=== PATIENT | male | born 1975 | race Caucasian/White ===

== ENCOUNTER 2018-06-06 17:20 | Inpatient (IN) | payer BC, OTHER ==
[2018-06-06 17:52] VITALS: BMI 29.5
--- NOTE | 2018-06-06 18:10 | HP ---
CIWA Score - CIWA Score Nausea/Vomitin Muscle Tremors: 2 Anxiety: 2 Agitation: 2 Paroxysmal Sweats: 1-Minimal Palms Moist Orientation: 0-Oriented Tacttile Disturbances: 1-Very Mild Itch/Numbness Auditory Disturbances: 1-Very Mild Visual Disturbances: 0-None Headache: 2-Mild CIWA-Ar Total Score: 13 Admission ROS BHS - HPI Chief Complaint: i need help to stop drinking alcohol Allergies/Adverse Reactions: Allergies Allergy/AdvReac Type Severity Reaction Status Date / Time No Known Allergies Allergy Verified 06/06/18 17:36 History of Present Illness: this 42years old male with alcohol dependence,seeking detox,withdrawal symptom, last detox in [facility] in 2013 blackout seen in [facility] this morning received librium 50 mgs,refer for detox anxiety on clonazepam asthma,bronchitis longest time of sobriety 6 months Exam Limitations: No Limitations - Ebola screening Have you traveled outside of the country in the last 21 days: No (N) Have you had contact with anyone from an Ebola affected area: No Have you been sick,other than usual withdrawal symptoms: No Do you have a fever: No - Review of Systems Constitutional: Malaise, Night Sweats, Changes in sleep, Weakness EENT: reports: Nose Congestion (asthma bronchtis) Respiratory: reports: Other (asthma bronchitis) Cardiac: reports: No Symptoms Reported GI: reports: Nausea, Abdominal cramping : reports: No Symptoms Reported Musculoskeletal: reports: Back Pain, Muscle Pain Integumentary: reports: Dryness Neuro: reports: Headache, Tremors Endocrine: reports: No Symptoms Reported Hematology: reports: No Symptoms Reported Psychiatric: reports: No Sypmtoms Reported, Judgement Intact, Mood/Affect Appropiate, Orientated x3, Agitated Patient History - Patient Medical History Hx Anemia: No Hx Asthma: Yes (bronchitis) Hx Chronic Obstructive Pulmonary Disease (COPD): No Hx Cancer: No Hx Cardiac Disorders: No Hx Congestive Heart Failure: No Hx Hypertension: No Hx Hypercholesterolemia: No Hx Pacemaker: No HX Cerebrovascular Accident: No Hx Seizures: No Hx Dementia: No Hx Diabetes: No Hx Gastrointestinal Disorders: No Hx Liver Disease: No Hx Genitourinary Disorders: No Hx Sexually Transmitted Disorders: No Hx Renal Disease (ESRD): No Hx Thyroid Disease: No Hx Human Immunodeficiency Virus (HIV): No (last 2008 negative) Hx Hepatitis C: No Hx Depression: Yes (anxiety) Hx Suicide Attempt: No Hx Bipolar Disorder: No Hx Schizophrenia: No Other Medical History: no suicidal,no homicidal - Patient Surgical History Hx Appendectomy: Yes ([facility] 2013) Other Surgical History: umbilical hernia in 2012 - PPD History Previous Implant?: Yes Documented Results: Positive w/o proof Implanted On Prior R Admission?: Yes PPD to be Administered?: Yes - Smoking Cessation Smoking history: Never smoked - Substance & Tx. History Hx Alcohol Use: Yes Hx Substance Use: No Substance Use Type: Alcohol Hx Substance Use Treatment: Yes ([facility] 2013) - Substances Abused Alcohol Route: Oral Frequency: Daily Amount used: liquor- 1 pints, beer- 1 six pack Age of first use: 13 Date of Last Use: 06/06/18 Family Disease History - Family Disease History Family Disease History: Other: Father (alcohol,), Mother (alcohol, ) Admission Physical Exam [facility] - Vital Signs Vital Signs: Vital Signs - 24 hr 06/06/18 17:36 Temperature 98.0 F Pulse Rate 94 H Respiratory 18 Rate Blood Pressure 145/84 - Physical General Appearance: Yes: Moderate Distress, Tremorous, Irritable, Sweating, Anxious HEENTM: Yes: Normal ENT Inspection, MARC, Pharynx Normal Respiratory: Yes: No Respiratory Distress, Wheezing Neck: Yes: Within Normal Limits Breast: Yes: Within Normal Limits Cardiology: Yes: Within Normal Limits, Regular Rhythm, Regular Rate, S1, S2 Abdominal: Yes: Within Normal Limits, Normal Bowel Sounds, Non Tender, Soft Genitourinary: Yes: Within Normal Limits Back: Yes: Muscle Spasm Musculoskeletal: Yes: Back pain, Muscle Pain Extremities: Yes: Tremors Integumentary: Yes: Dry Lymphatic: Yes: Within Normal Limits - Diagnostic (1) Alcohol dependence with uncomplicated withdrawal Current Visit: Yes Status: Acute (2) Syncope Current Visit: Yes Status: Acute (3) Asthmatic bronchitis Current Visit: Yes Status: Acute (4) Anxiety and depression Current Visit: Yes Status: Acute Cleared for Admission [facility] - Detox or Rehab [facility] Level of Care: Medically Managed Detox Regimen/Protocol: Librium [facility] Breath Alcohol Content Breath Alcohol Content: 0.069 Urine Drug Screen - Results Drug Screen Negative: Yes
[2018-06-06] MEDS ORDERED: guaiFENesin/D-METHORPHAN HB 10 ML UNIT-DOSE CUPS PO PRN (18:35)
[2018-06-06] MEDS ORDERED: MAGNESIUM HYDROX 2400MG/30ML ORAL SUSPENSION 30 ML CUP PO PRN (18:35)
[2018-06-06] MEDS ORDERED: IBUPROFEN 400 MG TABLET (FP) PO PRN (18:35)
[2018-06-06] MEDS ORDERED: P-EPHED 60MG/TRIPROLIDI 2.5MG TABLET PO PRN (18:35)
[2018-06-06] MEDS ORDERED: ACETAMINOPHEN 325 MG TABLET (FP) PO PRN (18:35)
[2018-06-06] MEDS ORDERED: LOPERAMIDE HCL 2 MG CAPSULE PO PRN (18:35)
[2018-06-06] MEDS ORDERED: MENTHOL/PHENOL 1 EACH UD MM PRN (18:35)
[2018-06-06] MEDS ORDERED: MAGNESIUM CITRATE 300 ML BOTTLE PO PRN (18:35)
[2018-06-06] MEDS ORDERED: ALBUTEROL SO4 8 GM HFA INHALER IH PRN (18:38)
[2018-06-06] MEDS: chlordiazePOXIDE HCL 25 MG CAPSULE PO PRN (19:30)
[2018-06-06] MEDS: MELATONIN 5 MG TABLETS PO PRN (22:44)
[2018-06-06] MEDS: THIAMINE HCL 100 MG TABLET (FP) PO SCH (22:44)
[2018-06-06] MEDS: chlordiazePOXIDE HCL 25 MG CAPSULE PO SCH (22:44)
[2018-06-06] MEDS: ROSUVASTATIN CA 5 MG TABLET (FP) PO SCH (22:49)
[2018-06-07] MEDS: chlordiazePOXIDE HCL 25 MG CAPSULE PO SCH ×4 (05:40→22:26)
--- NOTE | 2018-06-07 09:46 | CONSULT ---
[facility] Psychiatric Consult - Data Date of interview: 06/07/18 Admission source: Admitted as a transfer from 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 He had a prior in patient Detox treatment at [facility] in 2013 for ETOH abuse. He reports a history of black out spells no seizure disorder. Refer to addiction counselor muna for detailed history of ETOH abuse Medical History: GERD, diverticulitis, hypervcholesterolemia, ? Asthma. History of appendectomy in 2013 Psychiatric History: Patient has no prior psychiatric hospitalization, he experiences anxiety symptoms, self-medicated with benzo. He is medicated by his PCP with Trazodone for insomnia He is currentlky seing a private therapist and want to be hooked up with a psychiatrist to help alleviate his anxiety symptoms Physical/Sexual Abuse/Trauma History: Denied Mental Status Exam - Mental Status Exam Alert and Oriented to: Time, Place, Person Cognitive Function: Grossly Intact Patient Appearance: Well Groomed Mood: Anxious Affect: Appropriate Patient Behavior: Appropriate, Cooperative Speech Pattern: Clear Voice Loudness: Normal Thought Process: Intact Thought Disorder: Not Present Hallucinations: Denies Suicidal Ideation: Denies Homicidal Ideation: Denies Insight/Judgement: Poor Sleep: Poorly Appetite: Fair Muscle strength/Tone: Normal Gait/Station: Normal Psychiatric Findings - Problem List ([place] 1, 2,3) (1) Alcohol dependence with uncomplicated withdrawal Current Visit: Yes Status: Acute (2) Anxiety and depression Current Visit: Yes Status: Acute (3) Asthmatic bronchitis Current Visit: Yes Status: Acute - Initial Treatment Plan Initial Treatment Plan: Continue in patient Detox treatment. Psychoeducation. Atarax 25 mg po bid. Trazodone 50 mg po q hs
[2018-06-07] MEDS: PRENATAL VITAMINS W/ FOLIC ACID TABLET (FP) PO SCH (10:06)
[2018-06-07 10:36] LABS: HEMATOCRIT 44.8 % (35.4-49); HEMOGLOBIN 14.8 GM/dL (11.7-16.9); MCH 29.9 pg (25.7-33.7); MEAN CELL VOLUME 90.6 fl (80-96); MEAN PLT VOLUME 6.7 fl (7.5-11.1); PLATELET COUNT 175 K/MM3 (134-434); RBC 4.95 M/mm3 (4.00-5.60); WHITE BLOOD COUNT 4.4 K/mm3 (4.0-10.0)
[2018-06-07 10:44] LABS: ALBUMIN 3.6 g/dl (3.4-5.0); ALK PHOS 77 U/L (45-117); ANION GAP 12 MMOL/L (8-16); BILIRUBIN,TOTAL 0.7 mg/dL (0.2-1); BLOOD UREA NITROGEN 17 mg/dL (7-18); CALCIUM 8.1 mg/dL (8.5-10.1); CHLORIDE 105 mmol/L (98-107); CO2 26 mmol/L (21-32); CREATININE 0.8 mg/dL (0.55-1.3); GLUCOSE,RANDOM 92 mg/dL (74-106); POTASSIUM 4.1 mmol/L (3.5-5.1); SGOT/AST 50 U/L (15-37); SGPT/ALT 59 U/L (13-61); SODIUM 143 mmol/L (136-145); TOT PROT 6.6 g/dl (6.4-8.2)
[2018-06-07 10:45] LABS: URINE APPEARANCE CLEAR; URINE BILIRUBIN NEGATIVE (<2.0 mg/dL); URINE COLOR YELLOW; URINE GLUCOSE (UA) NEGATIVE (NEGATIVE); URINE KETONE NEGATIVE (NEGATIVE); URINE LEUK ESTERASE NEGATIVE (NEGATIVE); URINE NITRITE NEGATIVE (NEGATIVE); URINE PROTEIN 1+ (NEGATIVE); URINE UROBILINOGEN NEGATIVE mg/dL (0.2-1.0)
[2018-06-07 10:48] LABS: URINE MUCUS RARE
[2018-06-07] MEDS: chlordiazePOXIDE HCL 25 MG CAPSULE PO PRN (12:56)
--- NOTE | 2018-06-07 13:39 | PN ---
S CIWA - CIWA Score Nausea/Vomitin-Mild Nausea/No Vomiting Muscle Tremors: 3 Anxiety: 2 Agitation: 2 Paroxysmal Sweats: 1-Minimal Palms Moist Orientation: 1-Uncertain about Date Tacttile Disturbances: 1-Very Mild Itch/Numbness Auditory Disturbances: 1-Very Mild Visual Disturbances: 0-None Headache: 1-Very Mild CIWA-Ar Total Score: 13 BHS Progress Note (SOAP) Subjective: sweat tremor anxiety restlessness trouble sleep at night longest sobriety 6 month looking for a new sponsor the previous sponsor "disappeared" Objective: 06/07/18 13:37 Vital Signs Temperature 97.0 F L 06/07/18 09:53 Pulse Rate 89 06/07/18 09:53 Respiratory Rate 16 06/07/18 09:53 Blood Pressure 149/96 06/07/18 09:53 O2 Sat by Pulse Oximetry (%) Laboratory Last Values WBC 4.4 K/mm3 (4.0-10.0) 06/07/18 07:35 RBC 4.95 M/mm3 (4.00-5.60) 06/07/18 07:35 Hgb 14.8 GM/dL (11.7-16.9) 06/07/18 07:35 Hct 44.8 % (35.4-49) 06/07/18 07:35 MCV 90.6 fl (80-96) 06/07/18 07:35 MCH 29.9 pg (25.7-33.7) 06/07/18 07:35 MCHC 33.0 g/dl (32.0-35.9) 06/07/18 07:35 RDW 14.0 % (11.9-15.9) 06/07/18 07:35 Plt Count 175 K/MM3 (134-434) 06/07/18 07:35 MPV 6.7 fl (7.5-11.1) L 06/07/18 07:35 Sodium 143 mmol/L (136-145) 06/07/18 07:35 Potassium 4.1 mmol/L (3.5-5.1) 06/07/18 07:35 Chloride 105 mmol/L (98-107) 06/07/18 07:35 Carbon Dioxide 26 mmol/L (21-32) 06/07/18 07:35 Anion Gap 12 MMOL/L (8-16) 06/07/18 07:35 BUN 17 mg/dL (7-18) 06/07/18 07:35 Creatinine 0.8 mg/dL (0.55-1.3) 06/07/18 07:35 Creat Clearance w eGFR > 60 (>60) 06/07/18 07:35 Random Glucose 92 mg/dL (74-106) 06/07/18 07:35 Calcium 8.1 mg/dL (8.5-10.1) L 06/07/18 07:35 Total Bilirubin 0.7 mg/dL (0.2-1) 06/07/18 07:35 AST 50 U/L (15-37) H 06/07/18 07:35 ALT 59 U/L (13-61) 06/07/18 07:35 Alkaline Phosphatase 77 U/L (45-117) 06/07/18 07:35 Total Protein 6.6 g/dl (6.4-8.2) 06/07/18 07:35 Albumin 3.6 g/dl (3.4-5.0) 06/07/18 07:35 Urine Color Yellow 06/07/18 08:30 Urine Appearance Clear 06/07/18 08:30 Urine pH 7.0 (5.0-8.0) 06/07/18 08:30 Ur Specific [place] 1.024 (1.010-1.035) 06/07/18 08:30 Urine Protein 1+ (NEGATIVE) H 06/07/18 08:30 Urine Glucose (UA) Negative (NEGATIVE) 06/07/18 08:30 Urine Ketones Negative (NEGATIVE) 06/07/18 08:30 Urine Blood Negative (NEGATIVE) 06/07/18 08:30 Urine Nitrite Negative (NEGATIVE) 06/07/18 08:30 Urine Bilirubin Negative (<2.0 mg/dL) 06/07/18 08:30 Urine Urobilinogen Negative mg/dL (0.2-1.0) 06/07/18 08:30 Ur Leukocyte Esterase Negative (NEGATIVE) 06/07/18 08:30 Urine WBC (Auto) <1 /hpf (3-5) 06/07/18 08:30 Urine RBC (Auto) None /hpf (0-3) 06/07/18 08:30 Urine Mucus Rare 06/07/18 08:30 RPR Titer Nonreactive (NONREACTIVE) 06/07/18 07:35 lab noted calcium rich food Assessment: 06/07/18 13:38 withdrawal sx Plan: contiue detox wants to see a psycihistrist that patient was taking lexapro for depression and anxiety and was doing well
--- NOTE | 2018-06-07 13:49 | EKG ---
Test Reason : Blood Pressure : / mmHG Vent. Rate : 073 BPM Atrial Rate : 073 BPM P-R Int : 162 ms QRS Dur : 092 ms QT Int : 404 ms P-R-T Axes : 007 029 038 degrees QTc Int : 445 ms NORMAL SINUS RHYTHM NORMAL ECG NO PREVIOUS ECGS AVAILABLE Confirmed by MD Sreedhar, Mikie ([id number]) on 06/07/2018 1:49:24 PM Referred By: Confirmed By:Mikie Eli MD
[2018-06-07] MEDS ORDERED: METOPROLOL TARTRATE 25 MG TABLET (FP) PO ONE (15:09)
[2018-06-07] MEDS: THIAMINE HCL 100 MG TABLET (FP) PO SCH (22:26)
[2018-06-07] MEDS: ROSUVASTATIN CA 5 MG TABLET (FP) PO SCH (22:26)
[2018-06-07] MEDS: traZODone HCL 50 MG TABLET (FP) PO SCH (22:26)
[2018-06-07] MEDS: METOPROLOL TARTRATE 25 MG TABLET (FP) PO SCH (22:26)
[2018-06-07] MEDS: hydrOXYzine HCL 25 MG TABLET (FP) PO PRN (22:26)
[2018-06-07] MEDS: MAG HYDROX/AL HYDROX/SIMETH 30 ML UNIT-DOSE CUP PO PRN (22:28)
[2018-06-08] MEDS: chlordiazePOXIDE HCL 25 MG CAPSULE PO SCH ×3 (05:09→17:14)
--- NOTE | 2018-06-08 09:44 | PN ---
S CIWA - CIWA Score Nausea/Vomitin-No Nausea/No Vomiting Muscle Tremors: 4-Moderate,w/Arms Extend Anxiety: 4-Mod. Anxious/Guarded Agitation: 4-Moderately Restless Paroxysmal Sweats: 3 Orientation: 0-Oriented Tacttile Disturbances: 0-None Auditory Disturbances: 0-None Visual Disturbances: 0-None Headache: 0-None Present CIWA-Ar Total Score: 15 BHS Progress Note (SOAP) Subjective: agitation irritable sweats shakes Objective: 06/08/18 09:43 Vital Signs Temperature 97.2 F L 06/08/18 06:00 Pulse Rate 59 L 06/08/18 06:00 Respiratory Rate 20 06/08/18 06:00 Blood Pressure 116/76 06/08/18 06:00 O2 Sat by Pulse Oximetry (%) Laboratory Tests 06/07/18 06/07/18 06/07/18 07:35 07:35 07:35 WBC 4.4 RBC 4.95 Hgb 14.8 Hct 44.8 MCV 90.6 MCH 29.9 MCHC 33.0 RDW 14.0 Plt Count 175 MPV 6.7 L Sodium 143 Potassium 4.1 Chloride 105 Carbon Dioxide 26 Anion Gap 12 BUN 17 Creatinine 0.8 Creat Clearance w eGFR > 60 Random Glucose 92 Calcium 8.1 L Total Bilirubin 0.7 AST 50 H ALT 59 Alkaline Phosphatase 77 Total Protein 6.6 Albumin 3.6 Urine Color Urine Appearance Urine pH Ur Specific [place] Urine Protein Urine Glucose (UA) Urine Ketones Urine Blood Urine Nitrite Urine Bilirubin Urine Urobilinogen Ur Leukocyte Esterase Urine WBC (Auto) Urine RBC (Auto) Urine Mucus RPR Titer Nonreactive 06/07/18 08:30 WBC RBC Hgb Hct MCV MCH MCHC RDW Plt Count MPV Sodium Potassium Chloride Carbon Dioxide Anion Gap BUN Creatinine Creat Clearance w eGFR Random Glucose Calcium Total Bilirubin AST ALT Alkaline Phosphatase Total Protein Albumin Urine Color Yellow Urine Appearance Clear Urine pH 7.0 Ur Specific [place] 1.024 Urine Protein 1+ H Urine Glucose (UA) Negative Urine Ketones Negative Urine Blood Negative Urine Nitrite Negative Urine Bilirubin Negative Urine Urobilinogen Negative Ur Leukocyte Esterase Negative Urine WBC (Auto) <1 Urine RBC (Auto) None Urine Mucus Rare RPR Titer aaox3 ambulating no acute distress Assessment: 06/08/18 09:44 withdrawal sx Plan: continue detox increase fluids
[2018-06-08] MEDS: PRENATAL VITAMINS W/ FOLIC ACID TABLET (FP) PO SCH (10:08)
[2018-06-08] MEDS: METOPROLOL TARTRATE 25 MG TABLET (FP) PO SCH ×2 (10:08→22:07)
[2018-06-08] MEDS: chlordiazePOXIDE HCL 25 MG CAPSULE PO PRN (14:56)
[2018-06-08] MEDS: MAG HYDROX/AL HYDROX/SIMETH 30 ML UNIT-DOSE CUP PO PRN (17:14)
[2018-06-08] MEDS: hydrOXYzine HCL 25 MG TABLET (FP) PO PRN (18:52)
[2018-06-08] MEDS: THIAMINE HCL 100 MG TABLET (FP) PO SCH (22:06)
[2018-06-08] MEDS: MELATONIN 5 MG TABLETS PO PRN (22:06)
[2018-06-08] MEDS: ROSUVASTATIN CA 5 MG TABLET (FP) PO SCH (22:07)
[2018-06-08] MEDS: traZODone HCL 50 MG TABLET (FP) PO SCH (22:07)
[2018-06-08] MEDS: chlordiazePOXIDE 5 MG CAPSULE PO SCH (22:08)
[2018-06-09] MEDS: chlordiazePOXIDE 5 MG CAPSULE PO SCH ×3 (05:47→17:25)
--- NOTE | 2018-06-09 09:57 | PN ---
BHS Progress Note (SOAP) Subjective: feeling better little sweats Objective: 06/09/18 09:56 Vital Signs Temperature 96.8 F L 06/09/18 09:54 Pulse Rate 64 06/09/18 09:54 Respiratory Rate 16 06/09/18 09:54 Blood Pressure 105/72 06/09/18 09:54 O2 Sat by Pulse Oximetry (%) aaox3 ambulating no acute distress Assessment: 06/09/18 09:57 mild withdrawal sx Plan: continue detox increase fluids d/c in am
[2018-06-09] MEDS: PRENATAL VITAMINS W/ FOLIC ACID TABLET (FP) PO SCH (10:51)
[2018-06-09] MEDS: METOPROLOL TARTRATE 25 MG TABLET (FP) PO SCH ×2 (10:57→22:09)
[2018-06-09] MEDS: hydrOXYzine HCL 25 MG TABLET (FP) PO PRN (14:08)
[2018-06-09] MEDS: MAG HYDROX/AL HYDROX/SIMETH 30 ML UNIT-DOSE CUP PO PRN (14:08)
[2018-06-09] MEDS: MELATONIN 5 MG TABLETS PO PRN (22:09)
[2018-06-09] MEDS: ROSUVASTATIN CA 5 MG TABLET (FP) PO SCH (22:09)
[2018-06-09] MEDS: THIAMINE HCL 100 MG TABLET (FP) PO SCH (22:09)
[2018-06-09] MEDS: traZODone HCL 50 MG TABLET (FP) PO SCH (22:10)
[2018-06-09] MEDS: chlordiazePOXIDE HCL 10 MG CAPSULE PO SCH (22:10)
[2018-06-10] MEDS: chlordiazePOXIDE HCL 10 MG CAPSULE PO SCH (05:47)
[2018-06-10 06:35] VITALS: BP 92/60; PULSE 75; TEMP 97
== END 2018-06-10 09:15 | disposition home or self-care (01) | DRG 897 ==
LOC: YASAS 17:20 → Y6N 18:24
PROC: HZ2ZZZZ Detoxification Services for Substance Abuse Treatment (ICD-10-PCS; principal; 2018-06-06)
DX: F10.230 Alcohol dependence with withdrawal, uncomplicated (principal); F41.8 Other specified anxiety disorders; J45.909 Unspecified asthma, uncomplicated; K21.9 Gastro-esophageal reflux disease without esophagitis
CPT/HCPCS: 36415; 80053; 81003; 81015; 85027; 86593; 87070; 87075; 87102; 87116; 87205; 87206; 87210; 93005; 93010